=== PATIENT | female | born 1940 | race Caucasian/White ===

== ENCOUNTER 2018-09-25 08:07 | Outpatient (CLI) | END 2018-09-25 08:08 | disposition home or self-care (01) | LOC: RHC-LAB 08:07 | PROVIDERS: ATTEND General Practice | DX: E03.9 Hypothyroidism, unspecified (principal); E78.5 Hyperlipidemia, unspecified; Z79.899 Other long term (current) drug therapy | CPT/HCPCS: 36415; 80053; 80061; 81001; 84443; 85025; 87086 ==